=== PATIENT | male | born 1945 | race Caucasian/White ===

== ENCOUNTER 2018-12-12 06:38 | Outpatient (CLI) | payer MEDICARE ==
--- NOTE | 2018-12-12 11:25 | NM ---
NUCLEAR MEDICINE PARATHYROID SCAN: DATE: 12/12/2018 COMPARISON: None. HISTORY: Hyperparathyroidism, weight gain, fatigue. TECHNIQUE: Intravenous administration of 26.2 mCi technetium 99m labeled sestamibi performed followed by imaging over 2 hours. Imaging included SPECT imaging of the neck in the coronal, sagittal, and axial plane. FINDINGS: There is normal radiotracer distribution within the region of the thyroid gland and salivary glands o n the immediate, 1 hour, and 2 hour delayed imaging. SPECT imaging demonstrates no abnormal foci of radiotracer activity. No scintigraphic evidence of abnormal parathyroid tissue. If there is a history of abnormally elevated parathyroid hormone levels, CT examination of the neck with and without contrast using the parathyroid protocol is suggested. IMPRESSION: Unremarkable parathyroid scan as detailed above. Transcribed Date/Time: 12/12/2018 11:48 AM
== END 2018-12-12 06:39 | disposition home or self-care (01) ==
LOC: NM 06:38
PROVIDERS: ATTEND Internal Medicine Rheumatology
DX: E21.3 Hyperparathyroidism, unspecified (principal)
CPT/HCPCS: 78072; A9500

== ENCOUNTER 2019-05-05 21:42 | Inpatient (IN) | payer MEDICARE ==
--- NOTE | 2019-05-05 22:43 | RAD ---
Chest one view HISTORY: Dyspnea. FINDINGS: Cardiac silhouette is magnified and enlarged. Pulmonary vasculature upper limits of normal. Mediastinum is midline with postoperative changes and aortic calcification. Scattered areas of reticulonodular interstitial prominence. Bibasilar scarring. No evidence of pneumothorax. IMPRESSION: Atherosclerosis. Chronic scarring appearance of the lungs. No active cardiopulmonary abnormalities are otherwise demonstrated.
[2019-05-05 23:10] LABS: #Basophils 0.2 thou/uL (0.0-0.2); #Lymphocytes 0.4 thou/uL (1.20-3.40); #Monocytes 1.4 thou/uL (0.11-0.59); #Neutrophils 17.3 thou/uL (1.40-6.50); %Basophils 0.8 % (0.0-1.0); %Eosinophils 0.2 % (0.0-10.0); %Monocytes 7.2 % (0.0-10.0); %Neutrophils 89.7 % (42.0-75.0); Hemoglobin 9.2 g/dL (14.0-18.0); Mean Corpuscular HGB CONC 30.8 g/dL (32.0-36.0); Mean Corpuscular Hemoglobin 24.5 pg (27.0-31.0); Mean Corpuscular Volume 79.5 fL (78.0-98.0); Mean Platelet Volume 7.9 fL (7.4-10.4); Platelet Count 265 thou/uL (130-400); RBC Distribution Width 14.6 % (11.5-14.5); Red Blood Cell (RBC) Count 3.76 mill/uL (4.70-6.10); White Blood Cell (WBC) Count 19.3 thou/uL (4.8-10.8)
[2019-05-05] MEDS ORDERED: Acetaminophen 500 MG TAB ONE (23:16)
[2019-05-05 23:32] LABS: ALT (SGPT) 9 U/L (8-55); AST (SGOT) 19 U/L (5-34); Albumin 3.3 g/dL (3.4-4.8); Alkaline Phosphatase 71 U/L (40-110); Anion Gap 13 mmol/L (10-20); BUN (Urea Nitrogen) 32 mg/dL (8.4-25.7); Bilirubin, Total 1.1 mg/dL (0.2-1.2); CK (CPK) 119 U/L (30-200); Calc. Creatinine Clearance 0 mL/min (70-130); Carbon Dioxide 19 mmol/L (23-31); Chloride 106 mmol/L (98-107); Estimated GFR-MDRD 24; Globulin 2.8 g/dL (2.4-3.5); Glucose 121 mg/dL (83-110); Potassium 4.9 mmol/L (3.5-5.1); Protein, Total 6.1 g/dL (5.8-8.1); Sodium 133 mmol/L (136-145)
[2019-05-05] MEDS ORDERED: Furosemide 40 MG/4 ML VIAL ONE (23:47)
[2019-05-06] MEDS ORDERED: Piperacillin/Tazobactam 4.5 GM VIAL ONE (00:07)
[2019-05-06 01:00] LABS: CKMB 3.4 ng/mL (0-6.6)
[2019-05-06] MEDS ORDERED: Bisacodyl 10 MG SUPP PR PRN (01:45)
[2019-05-06] MEDS ORDERED: Loperamide HCl 2 MG CAP PO PRN (01:45)
[2019-05-06] MEDS ORDERED: Bisacodyl 5 MG TAB PO PRN (01:45)
[2019-05-06] MEDS ORDERED: HYDROcodone/Acetaminophen 5/325 mg Tablet PO PRN (01:45)
[2019-05-06] MEDS ORDERED: Morphine 2 MG/ML SYRINGE SLOW IVP PRN (01:47)
[2019-05-06] MEDS ORDERED: hydrALAZINE 20 MG/ML VIAL SLOW IVP PRN (01:47)
[2019-05-06] MEDS ORDERED: cloNIDine 0.1 MG TAB PO PRN (01:47)
[2019-05-06] MEDS ORDERED: Ondansetron PF 4 MG/2 ML Vial IVP PRN (01:47)
[2019-05-06] MEDS ORDERED: Promethazine HCl 12.5 MG in Sodium Chloride 0.9% 50 ML IVPB PRN (01:47)
--- NOTE | 2019-05-06 01:57 | PDOC.HHP ---
Hospitalist HPI - History of Present Illness Hematuria History of Present Illness: Patient is a 73 year old male with PMH myasthenia gravis, atrial fibrillation who presents to ED for hematuria. Patient was discharged from [facility] this morning, he had an ablation there yesterday for atrial fibrillation, per family everything went well with ablation by Dr Cruz, patient recieved normal dose of ASA and eliquis this AM and discharged home, he then began to have hematuria, first pink and then red urine, he also developed shortness of breath wth minimal exertion such as moving around in bed, was not urinating at all even after recieving lasix in ED, on floor bladder scan revealed 800cc urine in bladder. Ankur has been seen by urologist at other facilities several times this month for kidney stones, is not currently having flank pain. In ED, WBC elevated, creatinine increasing from 2.6 to 3.2, CXR with atherosclerosis and lung scarring. The family does not want to go to [facility] again. Dr Cruz called by ED who reportedly agreed for her to be admitted there and stated he will work with our cardiologists for any relevant issues. Hospitalist ROS - Review of Systems Constitutional: denies: fever, chills Eyes: denies: pain, vision change ENT: denies: mouth swelling, throat pain Respiratory: reports: cough, shortness of breath, SOB with excertion Cardiovascular: denies: chest pain, palpitations Gastrointestinal: denies: nausea, vomiting Genitourinary: reports: dysuria, hematuria Musculoskeletal: denies: neck pain, shoulder pain Skin: denies: rash, lesions Neurological: denies: weakness, numbness All other systems reviewed; all pertinent +/- noted in HPI/Subj Hospitalist History - Past Medical History Other Medical History: atrial fibrillation myasthenia gravis - Past Surgical History Other Surgical History: thymectomy appendectomy cholecystectomy hernia repair L knee replacement - Family History Other Family History: reviewed and noncontributory - Social History Smoking Status: Former smoker Alcohol: reports: None Drugs: reports: none - Exam General Appearance: NAD, awake alert Eye: PERRL, anicteric sclera ENT: normocephalic atraumatic, moist mucosa Neck: supple, no JVD Heart: RRR, no murmur, no gallops, no rubs Respiratory: CTAB, no wheezes, no rales, no ronchi Gastrointestinal: soft, non-tender, non-distended, normal bowel sounds Extremities: no cyanosis, no clubbing, no edema Skin: no lesions, no rashes Neurological: cranial nerve grossly intact, normal sensation to touch, no weakness, no focal deficits Musculoskeletal: normal tone, normal strength Psychiatric: normal affect, normal behavior, A&O x 3 Hospitalist Results - Labs Result Diagrams: 05/06/19 02:24 05/06/19 02:24 Lab results: WBC 19.3 thou/uL (4.8-10.8) H 05/05/19 23:02 Hgb 9.2 g/dL (14.0-18.0) L 05/05/19 23:02 Hct 29.9 % (42.0-52.0) L 05/05/19 23:02 MCV 79.5 fL (78.0-98.0) 05/05/19 23:02 Plt Count 265 thou/uL (130-400) 05/05/19 23:02 Neutrophils % 89.7 % (42.0-75.0) H 05/05/19 23:02 Sodium 133 mmol/L (136-145) L 05/05/19 23:02 Potassium 4.9 mmol/L (3.5-5.1) 05/05/19 23:02 Chloride 106 mmol/L (98-107) 05/05/19 23:02 Carbon Dioxide 19 mmol/L (23-31) L 05/05/19 23:02 BUN 32 mg/dL (8.4-25.7) H 05/05/19 23:02 Creatinine 2.62 mg/dL (0.7-1.3) H 05/05/19 23:02 Glucose 121 mg/dL (83-110) H 05/05/19 23:02 Calcium 10.0 mg/dL (7.8-10.44) 05/05/19 23:02 Total Bilirubin 1.1 mg/dL (0.2-1.2) 05/05/19 23:02 AST 19 U/L (5-34) 05/05/19 23:02 ALT 9 U/L (8-55) 05/05/19 23:02 Alkaline Phosphatase 71 U/L (40-110) 05/05/19 23:02 Creatine Kinase 119 U/L (30-200) 05/05/19 23:02 CK-MB (CK-2) 3.4 ng/mL (0-6.6) 05/05/19 23:02 Troponin I 2.000 ng/mL (< 0.028) H* 05/05/19 23:02 Serum Total Protein 6.1 g/dL (5.8-8.1) 05/05/19 23:02 Albumin 3.3 g/dL (3.4-4.8) L 05/05/19 23:02 Hospitalist H&P A/P - Plan Plan: Patient is a 73 year old male with PMH above admitted for: # hematuria - patient recieved ASA and eliquis, has hematuria and likely obstructive uropathy, hold blood thinners, rodriguez ordered and CBI ordered as well , will consult urology for presumed obstructive uropathy due to clotting # ZACHARY - presume due to obstructive uropathy, will place rodriguez and do CBI and consult urology and nephrology, repeat BMP 4pm # shortness of breath - presume acute volume overload, anticipate improvement with rodriguez placement # atrial fibrillation with ablation dischared from [place] yesterday - will consult cardiology, Dr Cruz has pledged to work with out cardiology team to address any need in the post procedure period
[2019-05-06 02:31] LABS: #Lymphocytes 0.5 thou/uL (1.20-3.40); #Monocytes 1.3 thou/uL (0.11-0.59); #Neutrophils 16.5 thou/uL (1.40-6.50); %Eosinophils 0.2 % (0.0-10.0); %Lymphocytes 2.6 % (21.0-51.0); %Monocytes 6.8 % (0.0-10.0); %Neutrophils 90.4 % (42.0-75.0); Hemoglobin 8.4 g/dL (14.0-18.0); Mean Corpuscular HGB CONC 31.5 g/dL (32.0-36.0); Mean Corpuscular Hemoglobin 24.5 pg (27.0-31.0); Mean Corpuscular Volume 77.9 fL (78.0-98.0); Mean Platelet Volume 7.7 fL (7.4-10.4); Platelet Count 260 thou/uL (130-400); RBC Distribution Width 14.6 % (11.5-14.5); Red Blood Cell (RBC) Count 3.42 mill/uL (4.70-6.10); White Blood Cell (WBC) Count 18.3 thou/uL (4.8-10.8)
[2019-05-06 03:06] LABS: Anion Gap 13 mmol/L (10-20); BUN (Urea Nitrogen) 36 mg/dL (8.4-25.7); Calc. Creatinine Clearance 0 mL/min (70-130); Calcium 10.2 mg/dL (7.8-10.44); Carbon Dioxide 19 mmol/L (23-31); Chloride 106 mmol/L (98-107); Estimated GFR-MDRD 19; Glucose 123 mg/dL (83-110); Potassium 4.8 mmol/L (3.5-5.1); Sodium 133 mmol/L (136-145)
[2019-05-06 03:16] LABS: Critical Call Chem Troponin I RESULT DECREASING; Troponin I 1.975 ng/mL (< 0.028)
[2019-05-06] MEDS: Acetaminophen 325 MG TAB PO PRN ×2 (03:24→20:08)
[2019-05-06 05:20] VITALS: BMI 43.9
[2019-05-06 05:38] LABS: Critical Call Chem Troponin I RESULT DECREASING; Troponin I 1.593 ng/mL (< 0.028)
[2019-05-06] MEDS ORDERED: Prevnar 13-Val Conj/PF 0.5 ML SYRINGE IM ONE (09:00)
--- NOTE | 2019-05-06 09:14 | CT ---
CT Abdomen Pelvis WO Con HISTORY: Obstructive uropathy. Acute renal insufficiency. Hematuria COMPARISON: None. FINDINGS: There are atelectatic changes within the lung bases. The liver, spleen and pancreas regions appear unremarkable. The gallbladder has been removed. A small hiatal hernia is noted. Right and left adrenal glands are normal. There is a right renal calculus located in the lower pole r egion measuring 11 mm range. There is marked hydronephrosis and hydroureter associated with this there is no evidence of a ureteral calculus. A Grijalva catheter is present within the bladder which is completely decompressed. There still appears to be wall thickening to the bladder. The prostate is enlarged. There is minimal dilatation to the left collecting system, again no evidence of any uretera l calculus. There is no significant periaortic or mesenteric adenopathy. CT of pelvis performed with contrast enhancement: No evidence of any significant adenopathy. Other fi ndings as noted above. There are arthritic changes of the spine. IMPRESSION: 1. Marked right-sided hydronephrosis and hydroureter, there is no obstructing calculus present. The b ladder is decompressed but the bladder wall still appears thickened. There is an approximately 11 mm lower pole right renal calculus present. 2. Enlarged prostate. 3. No renal mass is identified on this noncontrast study.
--- NOTE | 2019-05-06 09:23 | CON ---
DATE OF CONSULTATION: 05/06/2019 SERVICE: Nephrology. REQUESTING PHYSICIAN: Rene Crespo MD REASON FOR CONSULTATION: Renal failure. HISTORY OF PRESENT ILLNESS: A 73-year-old male with past medical history significant for obesity, myasthenia gravis, paroxysmal atrial fibrillation as well as obstructive sleep apnea and chronic leg swelling and nephrolithiasis, who was admitted due to acute onset of hematuria, which started few days after commencement of aspirin and Eliquis post ablation of atrial fibrillation. The patient reported worsening shortness of breath as well as difficulty urination. In the ER, the patient was found to have urinary retention. Hence, had Grijalva catheter placed and continuous bladder irrigation commenced. He was also found to have acute elevation in creatinine necessitating Nephrology consult. Of note, the patient was recently discharged from [facility] after ablation for atrial fibrillation. The patient denied knowledge of prior chronic kidney disease. PAST MEDICAL HISTORY: 1. Atrial fibrillation. 2. Obstructive sleep apnea. 3. Morbid obesity. 4. Myasthenia gravis. 5. Chronic CHF. PAST SURGICAL HISTORY: 1. Thymus removal. 2. Appendectomy. 3. Cholecystectomy. 4. Hernia repair. 5. Left knee replacement. FAMILY HISTORY: Reviewed, but noncontributory. SOCIAL HISTORY: The patient lives with family. He is a former smoker, who quit more than 10 years ago. Denied alcohol or recreational drug use. ALLERGIES: NO KNOWN DRUG ALLERGIES REPORTED. PRIOR TO HOSPITAL MEDICATIONS: 1. Eliquis 5 mg p.o. daily. 2. Aspirin 325 mg p.o. daily. 3. Azathioprine 100 mg p.o. b.i.d. 4. Colchicine 0.6 mg p.o. daily. 5. Mestinon 60 mg q.i.d. 6. Ramipril 5 mg p.o. daily. 7. Flomax 0.4 mg p.o. b.i.d. REVIEW OF SYSTEMS: This is grossly limited as the patient is on BiPAP currently. He, however, denied chest pain, abdominal pain, nausea, vomiting, fever, or cough. He admitted to chronic bilateral leg edema. PHYSICAL EXAMINATION: VITAL SIGNS: Temperature 99.2, pulse 84, respiratory rate 20, SpO2 of 96% on CPAP, blood pressure is 122/59. GENERAL: Morbidly obese male, in no obvious distress. Afebrile. Anicteric. Acyanotic. HEENT: Normocephalic, atraumatic. CPAP mask is in place. NECK: Supple with no JVD. CARDIOVASCULAR: Regular rhythm and rate with normal heart sounds 1 and 2. No obvious murmur was appreciated. RESPIRATORY: Fair air entry bilaterally with BiPAP transmitted breath sounds. No obvious rhonchi were appreciated. GI: Morbidly obese, soft, nontender, nondistended with normal bowel sounds. EXTREMITIES: Cupo-kn-fosldhll bilateral leg edema with chronic venous stasis changes noted. NEUROLOGIC: Conscious and alert. Oriented x3 with appropriate mental status. Cranial nerves 2 through 12 are grossly intact. The patient moves all extremities. UROGENITAL: Grijalva catheter is in place and continuous bladder irrigation is in process. Urine in the urine bag is clear with no obvious blood. DIAGNOSTIC DATA: CBC showed WBC count of 18.3, hemoglobin of 8.4, MCV of 77.9, platelet of 260. Of note, on presentation yesterday, WBC was 19.3 and hemoglobin was 9.2, whereas on May 02, WBC was 7.3 and hemoglobin was 10.2. BMP today showed sodium 133, potassium 4.8, chloride 106, CO2 of 19, creatinine 3.22, BUN 36, glucose 123, calcium 10.2. On presentation on May 05, creatinine was 2.66 and BUN was 32. However, on May 02, sodium was 141, potassium 4.3, chloride 110, CO2 of 23, BUN 15, creatinine 1.01, glucose 104, calcium 10.1. Liver enzymes were unremarkable with total bilirubin of 0.6, normal liver enzymes, and total protein of 6.3 with albumin of 3.5. Troponin on presentation was 2.00, which has trended down to 1.59 currently. Chest x-ray performed on presentation showed no active cardiopulmonary abnormality. EKG on presentation showed normal sinus rhythm with occasional PVCs with rate of 92. Right bundle-branch block and T-wave abnormalities on the lateral leads were noted. ASSESSMENT: 1. Acute kidney injury: The patient has history of nephrolithiasis as well as benign prostatic hypertrophy and came in with urinary retention, most likely due to bladder outlet obstruction related to clot. Differential include pyelonephritis and/or obstructive uropathy. Prerenal etiology seems unlikely as the patient has no features of volume overload or cardiac decompensation. Pigment related acute kidney injury is unlikely. Recent ablation increases risk of rhabdomyolysis. The patient also is on ramipril, increasing possibility of prerenal etiology. 2. Chronic kidney disease stage 3: Due to hemodynamic factors and age. 3. Gross hematuria: Most likely due to cystitis in a patient on anticoagulation. Suspected obstructive uropathy. 4. Nephrolithiasis with possible obstruction. 5. Chronic congestive heart failure with possible decompensation. 6. Obstructive sleep apnea. 7. Chronic bilateral leg edema: Most likely related to diastolic heart failure and venous insufficiency. 8. History of gout, on colchicine. 9. Paroxysmal atrial fibrillation, status post recent ablation. 10. Chronic anticoagulation with Eliquis. Recently commenced. 11. Morbid obesity. 12. History of myasthenia gravis, on Mestinon. PLAN: 1. We will get CK as well as urine electrolytes and urinalysis with reflex to culture. 2. We will also get CT scan of the abdomen and pelvis without contrast to assess renal anatomy and drainage system. 3. Agree with antibiotic therapy. 4. Urology consult has been requested. 5. Further treatment to follow depending on hospital course and review of other diagnostic tests. 6. Avoid nephrotoxic agents. Job ID: [id number] [facility]
[2019-05-06] MEDS: Pyridostigmine Bromide IR 60 MG TAB PO SCH ×4 (10:05→20:08)
[2019-05-06] MEDS: azaTHIOprine 50 MG TAB PO SCH ×2 (10:05→17:35)
[2019-05-06] MEDS: Tamsulosin HCl 0.4 MG CAP PO SCH ×2 (10:05→20:08)
[2019-05-06] MEDS: Senokot S 8.6-50 MG TAB PO SCH ×2 (10:06→20:08)
[2019-05-06] MEDS ORDERED: Apixaban 5 MG TAB PO SCH ×3 (11:11→21:00)
--- NOTE | 2019-05-06 11:15 | CON ---
DATE OF CONSULTATION: 05/06/2019 REASON FOR CONSULTATION: Urinary retention, gross hematuria, renal insufficiency. PRIMARY UROLOGIST: Dr. Eyad Marcelino at [facility]. HISTORY OF PRESENT ILLNESS: Mr. Bach is a pleasant 73-year-old male, who recently underwent cardiac ablation at [facility] due to paroxysmal AFib. He had been started on his aspirin and Eliquis post ablation for history of AFib. He presented to the emergency room due to gross hematuria. He also complained of shortness of breath in the emergency room, and difficulty voiding. He was provided Lasix. Grijalva catheter was placed, review of records demonstrated he had about a liter in his bladder. Continuous bladder irrigation was started by the emergency room in which he currently has a 20-[place] three-way Grijalva catheter. Currently, the CBI is running at a relatively slow rate and is bibi, pink tinged. Review of [facility] records: significantly enlarged prostate, resection of his prostate was challenging due to his body habitus, morbid obesity, and large prostate volume. He underwent staged intervention of cystolitholapaxy, subsequent TURP, and residual bladder laser lithotripsy on April 19, [address] Marcelino. Operative records reviewed demonstrating he had significant trilobar hyperplasia of the prostate. He states that he has been voiding okay, status post surgery, however, continues to have decreased urinary flow. Currently, he is resting comfortably. Family at bedside. His labs, imaging, and chart reviewed from [facility] as well in concordance with imaging and labs from [facility]. He was seen by Nephrology already, as he has acute renal insufficiency from baseline, a CT of the abdomen and pelvis stone protocol was obtained this morning, which I reviewed myself, demonstrating mild bilateral hydronephrosis, right greater than left. The dilation of his collecting system is seen to the level of the bladder consistent with urinary retention. There is no evidence of ureteral calculi. He has a stable right lower pole renal calculi, which was present on renal ultrasound at [facility]. PAST MEDICAL HISTORY: Includes AFib, COPD, morbid obesity, myasthenia gravis, and chronic CHF. PAST SURGICAL HISTORY: Status post thymectomy, appendectomy, cholecystectomy, hernia repair, left knee surgery. At [facility] last month, he underwent cysto, TURP, laser lithotripsy of bladder calculi, TURP of trilobar hyperplasia of the prostate by Dr. Marcelino. FAMILY HISTORY: Negative. SOCIAL HISTORY: Lives with family. Former smoker, quit about 10 years ago. Denies alcohol or illicit drug use. ALLERGIES: NO KNOWN DRUG ALLERGIES. HOME MEDICATIONS: Include; 1. Eliquis 5 mg one p.o. daily. 2. Aspirin 325. 3. Azathioprine. 4. Colchicine. 5. Ramipril. 6. Flomax 0.4 mg one p.o. b.i.d. REVIEW OF SYSTEMS: Ten-point review of systems as above, otherwise noncontributory. Daughter at bedside. PHYSICAL EXAMINATION: VITAL SIGNS: Stable. Heart rate is 84 to 102, saturating well on 96%, and blood pressure is stable. I's and O's; he has 850 of urine out. GENERAL: The patient is morbidly obese male, cooperative to physical exam. HEENT: Grossly unremarkable. HEART: Regular rate. LUNGS: Decreased inspiratory effort. ABDOMEN: Morbidly obese, protuberant. There is some ecchymosis in the left groin from recent cardiac ablation access with no hematoma, but ecchymosis in the left groin noted. GENITOURINARY: Uncircumcised, testes are descended. Consistent with his physical exam and CT, he has a very large prostate, his catheter is near hubbed consistent with prolonged urethral length. I did flush his catheter manually at bedside with tiny scant clots. CBI re-initiated at a low rate demonstrating bibi urine. CBI was restarted this morning by nursing staff as it was held by Nephrology and restarted due to hematuria component. EXTREMITIES: Bilateral pitting edema with venous stasis changes. I did not perform a digital rectal exam on today's consult. PSYCHIATRIC: Appears to be appropriate. Affect normal. No gross focal deficits neurologically. PERTINENT LABORATORY AND IMAGING DATA: Renal ultrasound from [facility] reviewed on March 24, 2019, with no evidence of hydronephrosis. CT of the abdomen and pelvis stone protocol this morning on May 06, 2019, demonstrates right lower pole renal calculi of 11 mm. Although, the CT was read as marked hydronephrosis. Per my review, there is mild hydronephrosis and hydroureter, right greater than left. Dilated ureter is seen to the level of the prostate, consistent with acute urinary retention resulting in bilateral hydro. There is no evidence of ureteral calculi. Per my review, CT prostate volume measures 250 to 300gms, has persistent trilobar median lobe component on sagittal images. IMPRESSION: Mr. Bach is a 73-year-old male with; 1. Morbid obesity. 2. Congestive heart failure. 3. Atrial fibrillation. 4. History of bladder stones due to chronic retention likely, with very large prostate volume, status post transurethral resection of the prostate, cystolitholapaxy last month. 5. Cardiac ablation, on Eliquis, aspirin, presented with gross hematuria, retention, and renal insufficiency and hydronephrosis as above. Anticoagulation on hold due to gross hematuria, anemia PLAN: I recommend indwelling Grijalva catheter to stay in situ with CBI. This will be monitored with continuous bladder irrigation and will be managed per . Monitor H and H and BMP. I anticipate his creatinine will improve as his bladder is decompressed. will recheck BMP tomorrow. He does have history of kidney stones. He states that he has no back pain consistent with renal colicky discomfort of concern. Continue Flomax b.i.d., Avodart initiated. will inform Dr. Marcelino on Wednesday. Job ID: [id number] [facility]
--- NOTE | 2019-05-06 11:53 | CON ---
DATE OF CONSULTATION: PRIMARY AUTOTRANSFUSIONIST: Herbie Herrera MD REASON FOR CONSULTATION: Recent atrial fibrillation ablation by Dr. Cruz, hematuria. HISTORY OF PRESENT ILLNESS: Mr. aBch is a 73-year-old gentleman, who recently had atrial fibrillation ablation at [facility]. The patient developed gross hematuria at home and was brought here to the emergency room. The patient does not have a lot a recollection. There is some confusion last night. The patient for some reason brought to this institution, although his cashier host/hostess is at [facility]. The patient does not have any history of coronary artery disease. He takes aspirin because the patient states that he was told that will be a good idea buy someone, but as far as he knows, he does not have any history of coronary artery disease. No chest pain or pressure. He also has a history of renal insufficiency. MEDICINES: At home included; 1. Aspirin. 2. Eliquis. ALLERGIES: NONE KNOWN. PHYSICAL EXAMINATION: GENERAL: On examination, his blood pressure is 126/59 and pulse 102, sinus rhythm. HEENT: Eyes; sclerae are nonicteric. Mouth; mucous membranes moist. NECK: Supple. No lymphadenopathy. LUNGS: Clear. CARDIAC: Normal S1. Normal S2. There is no murmur, rub, or gallop. ABDOMEN: Obese, nontender. No hepatosplenomegaly. EXTREMITIES: Moderate peripheral edema with some venous stasis changes. DIAGNOSTIC DATA: EKG shows sinus rhythm with a right bundle-branch block. ASSESSMENT: 1. Recent atrial fibrillation ablation. 2. Increased troponin level, probably related to atrial fibrillation ablation, the levels are decreasing. 3. Renal insufficiency with a creatinine of 3.22. 4. He has edema. PLAN: 1. Need to resume Eliquis in view of the recent AFib ablation. Otherwise, there will be substantial risk of stroke. 2. Stop aspirin. 3. He is getting bladder irrigation. 4. He has obstructive sleep apnea, on CPAP. Job ID: [id number]
[2019-05-06] MEDS ORDERED: Piperacillin/Tazobactam 3.375 GM in Sodium Chloride 0.9% 100 ML IVPB SCH (12:00)
[2019-05-06 12:05] LABS: Bacteria/HPF 4+ HPF (None Seen); Bilirubin Negative (Negative); Blood, Urine 3+ (Negative); Clarity Turbid (Clear); Glucose, Urine (Dipstick) Normal (Negative); Leukocyte 250 Leu/uL (Negative); Nitrite Negative (Negative); Protein, Urine (Dipstick) 100 mg/dL (Neg-Trace); RBC/HPF Greater than 50 HPF (0-3); Squamous Epithelial None Seen HPF (0-3); Urobilinogen Normal mg/dL (Less than 2)
[2019-05-06 12:08] LABS: Urine Culture Reflex Yes Yes
[2019-05-06 12:18] LABS: Creatinine, Urine 75.36 mg/dL (63-166)
--- NOTE | 2019-05-06 12:45 | PDOC.HOSPP ---
- Subjective Encounter Date: 05/06/19 Encounter Time: 09:00 Subjective: no sob or chest pain now had sob prior to arrival is using cpap and trying to sleep now daughter at bedside no prior h/o ckd per patient and daughter, most of his hosp are at [facility] or [facility] - Objective Vital Signs & Weight: Vital Signs (12 hours) Temp Pulse Resp BP Pulse Ox 05/06/19 08:00 97.8 F 102 H 18 126/59 L 96 05/06/19 01:45 99.2 F 84 20 122/59 L 96 Weight Admit Weight 361 lb 1.875 oz Weight 361 lb 1.875 oz I&O: 05/05/19 05/06/19 05/07/19 06:59 06:59 06:59 Intake Total 100 Output Total 850 Balance -750 Result Diagrams: 05/06/19 02:24 05/06/19 02:24 Hospitalist ROS - Medication Medications: Active Medications Generic Name Dose Route Start Last Admin Trade Name Freq PRN Reason Stop Dose Admin Acetaminophen 650 mg 05/06/19 01:45 05/06/19 03:24 Tylenol PO 650 mg Q4H PRN Administration Headache/Fever/Mild Pain (1-3) Apixaban 5 mg 05/06/19 11:30 05/06/19 11:35 Eliquis PO 05/06/19 14:00 Not Given NOW HONEY Azathioprine 100 mg 05/06/19 07:30 05/06/19 10:05 Imuran PO 100 mg BID-AC HONEY Administration Pantoprazole Sodium 40 mg 05/06/19 09:00 05/06/19 10:05 Protonix PO 40 mg DAILY HONEY Administration Pyridostigmine [place] 60 mg 05/06/19 09:00 05/06/19 10:05 Mestinon PO 60 mg QID HONEY Administration Senna/Docusate Sodium 1 tab 05/06/19 09:00 05/06/19 10:06 Senokot S PO 1 tab BID HONEY Administration Sodium Chloride 10 ml 05/06/19 09:00 05/06/19 10:06 Flush - Normal Saline IVF 10 ml Q12HR HONEY Administration Tamsulosin HCl 0.4 mg 05/06/19 09:00 05/06/19 10:05 Flomax PO 0.4 mg BID HONEY Administration - Exam General Appearance: NAD, awake alert Eye: PERRL, anicteric sclera ENT: no oropharyngeal lesions, moist mucosa Neck: supple, no JVD Heart: RRR, no murmur Respiratory: no wheezes, no rales Respiratory - other findings: distant breath sounds Gastrointestinal: soft, non-tender, normal bowel sounds Extremities: no cyanosis, 1+ LE edema Neurological: cranial nerve grossly intact, no focal deficits Psychiatric: A&O x 3 Hosp A/P (1) ZACHARY (acute kidney injury) Code(s): N17.9 - ACUTE KIDNEY FAILURE, UNSPECIFIED Status: Acute (2) CKD (chronic kidney disease) stage 3, GFR 30-59 ml/min Code(s): N18.3 - CHRONIC KIDNEY DISEASE, STAGE 3 (MODERATE) Status: Suspected (3) Hematuria Code(s): R31.9 - HEMATURIA, UNSPECIFIED Status: Acute Qualifiers: Hematuria type: gross Qualified Code(s): R31.0 - Gross hematuria (4) H/O myasthenia gravis Code(s): Z86.69 - PERSONAL HISTORY OF DIS OF THE NERVOUS SYS AND SENSE ORGANS Status: Chronic (5) HTN (hypertension) Code(s): I10 - ESSENTIAL (PRIMARY) HYPERTENSION Status: Chronic Qualifiers: Hypertension type: essential hypertension Qualified Code(s): I10 - Essential (primary) hypertension (6) Afib Code(s): I48.91 - UNSPECIFIED ATRIAL FIBRILLATION Status: Chronic Qualifiers: Atrial fibrillation type: paroxysmal Qualified Code(s): I48.0 - Paroxysmal atrial fibrillation (7) Chronic anemia Code(s): D64.9 - ANEMIA, UNSPECIFIED Status: Chronic (8) Hyponatremia Code(s): E87.1 - HYPO-OSMOLALITY AND HYPONATREMIA Status: Acute (9) Obesity Code(s): E66.9 - OBESITY, UNSPECIFIED Status: Chronic Qualifiers: Obesity classification: adult class 3 (BMI >= 40) Body mass index: BMI 40.0 -44.9 - Plan is on imuran, mestinon for M.gravmar had recent ablation by and was on eliquis, held now due to hematuria continue zosyn, flomax obtain records from either [facility] or [facility] to check for prior creatinine levels, echo results for ef/thrombus hemostable to mobilize with PT as tolerated d/w daughter and patient at bedside urine is almost clearing up, no jacky blood in rodriguez now
[2019-05-06] MEDS ORDERED: Piperacillin/Tazobactam 2.25 GM in Sodium Chloride 0.9% 100 ML IVPB SCH (14:00)
--- NOTE | 2019-05-06 15:47 | CON ---
DATE OF CONSULTATION: 05/06/2019 REASON FOR CONSULTATION: Paroxysmal atrial fibrillation. HISTORY OF PRESENT ILLNESS: Mr. Bach is a pleasant 73-year-old white male with a history of BPH with bladder outlet obstruction, persistent atrial fibrillation , myasthenia gravis, diastolic heart failure, and hematuria. He had a TURP by Dr. Eyad Marcelino, at [facility] on April 10, 2019 and April 19, 2019. After discussion with Dr. Marcelino and the patient, we jointly decided to proceed with pulmonary vein isolation, which I performed on May 04 at the [facility]. The procedure was uncomplicated other than some mild hematuria. During the procedure, he was converted to sinus rhythm. He has a right bundle branch block at baseline with AV Wenckebach of 94 beats per minute. Last night, he developed a fever with increased hematuria. His family brought him to the [facility], who was seen in the Emergency Department. WBC was 20. He was febrile. He was treated with antibiotics and a Grijalva catheter was placed after noting that he had 800 mL of residual urine in his bladder. He is now comfortable and afebrile. He has chronic anemia with a hemoglobin of 9.8 on April 11, 2019. Hemoglobin today is 8.4. Platelets are 260. His creatinine has increased to 3.2. JEFFERY on May 04, 2019, showed moderate biatrial enlargement with ejection fraction 65%, mildly calcified aortic valve with mild tricuspid regurgitation and mild mitral regurgitation. He has had no bleeding from his catheterization sites. He has no chest discomfort or dyspnea. He is lying flat without respiratory difficulty. PAST MEDICAL HISTORY: 1. Persistent atrial fibrillation as above. 2. BPH with bladder outlet obstruction and recent TURP as above. 3. Diastolic heart failure as above. SOCIAL HISTORY: He lives in [place]. His daughter and granddaughter had involved in his care and brought him to the hospital. REVIEW OF SYSTEMS: No melena, bright blood per rectum, or hematemesis. No chest discomfort or dyspnea. No unilateral weakness or numbness. No seizures. No dysphagia. PHYSICAL EXAMINATION: GENERAL: Alert and oriented x4. No apparent distress, lying flat. VITAL SIGNS: Temperature 97.8, pulse 94, respiratory rate 12, and blood pressure 126/59. HEENT: No lesions. CARDIOVASCULAR: Regular rate and rhythm. No murmurs, gallops, or rubs. LUNGS: Clear to auscultation bilaterally. ABDOMEN: Nontender and nondistended. Groin bilaterally mild ecchymoses without hematoma at his catheterization sites. EXTREMITIES: 1+ edema bilaterally. DIAGNOSTIC DATA: EKG sinus rhythm with right bundle branch block. LABORATORY DATA: WBC 18.3, hemoglobin 8.4, hematocrit 26.7, and platelets 260. Sodium 133, potassium 4.8, BUN 36, creatinine 3.2, and glucose 123. IMPRESSION AND PLAN: 1. Persistent atrial fibrillation, now in sinus rhythm after ablation. 2. Diastolic heart failure, compensated. 3. Hematuria, likely related to anticoagulation as we gave heparin during the procedure and he is chronically on Eliquis. Eliquis was restarted yesterday morning after the procedure. 4. Hematuria. 5. Bladder outlet obstruction with a recent transurethral resection of the prostate. RECOMMENDATION: 1. Hold Eliquis and aspirin today. Resume Eliquis as soon as acceptable from urologic standpoint. 2. Continue Protonix. Restart Multaq 400 mg b.i.d. 3. Agree with Urology consultation. Job ID: [id number] [facility] CENTERKira
[2019-05-06] MEDS: Dronedarone HCl 400 MG TAB PO SCH (17:35)
[2019-05-06] MEDS ORDERED: Cefepime 1 GM in Sodium Chloride 0.9% 100 ML IVPB SCH (18:15)
[2019-05-06] MEDS ORDERED: Vancomycin HCl 1 GM in Premix Bag 1 BAG IVPB SCH ×2 (18:15→19:00)
[2019-05-06 18:27] LABS: Anion Gap 12 mmol/L (10-20); BUN (Urea Nitrogen) 33 mg/dL (8.4-25.7); Calc. Creatinine Clearance 70 mL/min (70-130); Calcium 10.2 mg/dL (7.8-10.44); Carbon Dioxide 23 mmol/L (23-31); Chloride 104 mmol/L (98-107); Estimated GFR-MDRD 30; Glucose 107 mg/dL (83-110); Potassium 4.5 mmol/L (3.5-5.1); Sodium 134 mmol/L (136-145)
[2019-05-06] MEDS: Apixaban 5 MG TAB PO SCH (20:08)
[2019-05-07 04:33] LABS: #Eosinphils 0.1 thou/uL (0.0-0.7); #Lymphocytes 0.4 thou/uL (1.20-3.40); #Monocytes 0.5 thou/uL (0.11-0.59); #Neutrophils 9.9 thou/uL (1.40-6.50); %Basophils 0.3 % (0.0-1.0); %Eosinophils 0.8 % (0.0-10.0); %Lymphocytes 3.2 % (21.0-51.0); %Monocytes 4.7 % (0.0-10.0); Hemoglobin 7.9 g/dL (14.0-18.0); Mean Corpuscular HGB CONC 31.5 g/dL (32.0-36.0); Mean Corpuscular Hemoglobin 24.7 pg (27.0-31.0); Mean Corpuscular Volume 78.4 fL (78.0-98.0); Mean Platelet Volume 8.4 fL (7.4-10.4); Platelet Count 185 thou/uL (130-400); RBC Distribution Width 14.4 % (11.5-14.5); Red Blood Cell (RBC) Count 3.19 mill/uL (4.70-6.10); White Blood Cell (WBC) Count 10.9 thou/uL (4.8-10.8)
[2019-05-07 05:02] LABS: Anion Gap 10 mmol/L (10-20); BUN (Urea Nitrogen) 34 mg/dL (8.4-25.7); Calc. Creatinine Clearance 87 mL/min (70-130); Calcium 10.1 mg/dL (7.8-10.44); Carbon Dioxide 22 mmol/L (23-31); Chloride 107 mmol/L (98-107); Estimated GFR-MDRD 38; Glucose 99 mg/dL (83-110); Potassium 4.4 mmol/L (3.5-5.1); Sodium 135 mmol/L (136-145)
[2019-05-07 08:06] LABS: Iron Binding Capacity, Total 263 mcg/dL (261-462)
[2019-05-07 08:12] LABS: Iron Less than 8 ug/dL (65-175)
--- NOTE | 2019-05-07 09:13 | PRG ---
DATE OF SERVICE: 05/07/2019 SERVICE: Nephrology. SUBJECTIVE: A 73-year-old male admitted due to worsening leg swelling and gross hematuria, being followed up for acute kidney injury. Gross hematuria has subsided. The patient reports improvement in leg swelling. Continues to get continues bladder irrigation. Denied fever, nausea, and vomiting. The patient recently had a prostate resection. OBJECTIVE: VITAL SIGNS: Temperature 98.1, pulse 80, respiratory rate 16, SpO2 of 98% on 2 L nasal cannula, and blood pressure is 107/53. GENERAL: Obese male, in no obvious distress. Afebrile. Anicteric. Acyanotic. HEENT: Normocephalic and atraumatic. Oral mucosa is moist. CARDIOVASCULAR: Regular rhythm and rate with normal heart sounds one and two. Soft systolic murmur noted, maximal at the aortic area. RESPIRATORY: Fair air entry bilaterally with few transmitted breath sounds. No obvious crackle or rhonchi or use of accessory muscles appreciated. GI: Obese, soft, nontender, and nondistended with normal bowel sounds. UROGENITAL: Grijalva catheter is in place. Left groin ecchymosis noted. EXTREMITIES: Trace bilateral leg edema noted. BOTTOM LIQUOR ATTENDANT: Conscious, alert, and oriented x3 with appropriate mental status. Cranial nerves 2 through 12 are grossly intact. DIAGNOSTIC DATA: CBC showed WBC count of 10.9, hemoglobin of 7.9, and platelet of 185. BMP showed sodium 135, potassium 4.4, chloride 107, CO2 of 22, BUN 34, creatinine 1.76, glucose 99, and calcium 10.1. ASSESSMENT: 1. Acute kidney injury: This is most likely due to obstructive uropathy. Contribution from pyelonephritis cannot be ruled out. Baseline creatinine was 1.01 on May 02, 2019. It went up to a peak of above 3, but is currently down to 1.7. There seems to be two pathologies here; one unilateral hydronephrosis from possible stone and bladder outlet obstruction from clot. Bladder outlet obstruction has been relieved with improvement in renal function. 2. Chronic kidney disease, stage 3. 3. Nephrolithiasis with presumed obstruction on the right side and possible pyelonephritis. 4. Complicated urinary tract infection. 5. Bladder outlet obstruction status post decompression with Grijalva catheter. 6. Bilateral leg edema: Due to chronic kidney disease with fluid retention. Markedly improved with post obstruction diuresis. 7. Post obstruction diuresis: We will monitor closely. The patient put out about 7000 L of urine with about 3 L negative in the last 24 hours. This; however, is questionable given the patient receives continues bladder irrigation. 8. Obstructive sleep apnea, on continuous positive airway pressure. 9. Paroxysmal atrial fibrillation, status post ablation. 10. Chronic anticoagulation with Eliquis and aspirin: Both are held at this time due to hematuria. 11. Morbid obesity. 12. History of gout, on colchicine. PLAN: 1. We will continue to avoid nephrotoxic agent including KRISTIAN inhibitors and diuretics. 2. We will monitor intake and output very closely and will possibly start IV fluid therapy, if the patient's post obstruction diuresis is causing dehydration. 3. Urology is following. May need to repeat ultrasound of the kidneys to ascertain resolution of right unilateral hydronephrosis. 4. Anemia in the CKD. We will get iron chemistry to rule in or rule out iron deficiency anemia and will address as needed. 5. Other treatment as per other specialties. Job ID: [id number]
[2019-05-07] MEDS: Dutasteride 0.5 MG CAP PO SCH (10:00)
[2019-05-07] MEDS: Pyridostigmine Bromide IR 60 MG TAB PO SCH ×4 (10:01→19:45)
[2019-05-07] MEDS: azaTHIOprine 50 MG TAB PO SCH ×2 (10:01→17:38)
[2019-05-07] MEDS: Dronedarone HCl 400 MG TAB PO SCH ×2 (10:01→17:38)
[2019-05-07] MEDS: Tamsulosin HCl 0.4 MG CAP PO SCH ×2 (10:01→19:44)
[2019-05-07] MEDS: Apixaban 5 MG TAB PO SCH ×2 (10:02→19:44)
[2019-05-07] MEDS: Senokot S 8.6-50 MG TAB PO SCH ×2 (10:02→19:45)
--- NOTE | 2019-05-07 11:00 | PDOC.HOSPP ---
- Subjective Encounter Date: 05/07/19 Encounter Time: 10:00 Subjective: more awake and alert this am is getting echo done feels better no bleeding in his rodriguez - Objective Vital Signs & Weight: Vital Signs (12 hours) Temp Pulse Resp BP Pulse Ox 05/07/19 07:50 98.1 F 80 16 107/53 L 98 05/07/19 03:00 98.4 F 83 20 134/60 96 05/06/19 23:00 100.1 F H 82 20 113/55 L 98 Weight Admit Weight 361 lb 1.875 oz Weight 365 lb I&O: 05/06/19 05/07/19 05/08/19 06:59 06:59 06:59 Intake Total 100 3400 500 Output Total 850 8594 Balance -750 -5177 500 Result Diagrams: 05/07/19 04:17 05/07/19 04:17 Hospitalist ROS - Medication Medications: Active Medications Generic Name Dose Route Start Last Admin Trade Name Freq PRN Reason Stop Dose Admin Acetaminophen 650 mg 05/06/19 01:45 05/06/19 20:08 Tylenol PO 650 mg Q4H PRN Administration Headache/Fever/Mild Pain (1-3) Apixaban 5 mg 05/06/19 21:00 05/07/19 10:02 Eliquis PO 5 mg BID HONEY Administration Azathioprine 100 mg 05/06/19 07:30 05/07/19 10:01 Imuran PO 100 mg BID-AC HONEY Administration Dronedarone 400 mg 05/06/19 17:00 05/07/19 10:01 Multaq PO 400 mg BID-WM HONEY Administration Dutasteride 0.5 mg 05/07/19 09:00 05/07/19 10:00 Avodart PO 0.5 mg DAILY HONEY Administration Cefepime HCl 1 gm/ Sodium 100 mls @ 200 mls/hr 05/06/19 18:15 05/06/19 19:23 Chloride IVPB 100 mls Q24HR HONEY Administration Vancomycin HCl 1 gm/ Device 200 mls @ 200 mls/hr 05/06/19 19:00 05/06/19 20: 08 IVPB 200 mls Q24HR HONEY Administration Pantoprazole Sodium 40 mg 05/06/19 09:00 05/07/19 10:02 Protonix PO 40 mg DAILY HONEY Administration Pyridostigmine [place] 60 mg 05/06/19 09:00 05/07/19 10:01 Mestinon PO 60 mg QID HONEY Administration Senna/Docusate Sodium 1 tab 05/06/19 09:00 05/07/19 10:02 Senokot S PO Not Given BID HONEY Sodium Chloride 10 ml 05/06/19 09:00 05/07/19 10:03 Flush - Normal Saline IVF 10 ml Q12HR HONEY Administration Tamsulosin HCl 0.4 mg 05/06/19 09:00 05/07/19 10:01 Flomax PO 0.4 mg BID HONEY Administration - Exam General Appearance: awake alert Eye: PERRL, anicteric sclera ENT: no oropharyngeal lesions, moist mucosa Neck: supple, no JVD Heart: no murmur, no gallops Respiratory: no wheezes, no rales Gastrointestinal: soft, non-tender, non-distended, normal bowel sounds Extremities: no cyanosis, no edema Neurological: cranial nerve grossly intact, no focal deficits Psychiatric: normal affect, A&O x 3 Hosp A/P (1) Bacteremia due to Enterococcus Code(s): R78.81 - BACTEREMIA; B95.2 - ENTEROCOCCUS THE CAUSE OF DISEASES CLASSIFIED ELSEWHERE Status: Acute (2) Sepsis Code(s): A41.9 - SEPSIS, UNSPECIFIED ORGANISM Status: Acute (3) ZACHARY (acute kidney injury) Code(s): N17.9 - ACUTE KIDNEY FAILURE, UNSPECIFIED Status: Acute (4) CKD (chronic kidney disease) stage 3, GFR 30-59 ml/min Code(s): N18.3 - CHRONIC KIDNEY DISEASE, STAGE 3 (MODERATE) Status: Suspected (5) Hematuria Code(s): R31.9 - HEMATURIA, UNSPECIFIED Status: Resolved Qualifiers: Hematuria type: gross Qualified Code(s): R31.0 - Gross hematuria (6) H/O myasthenia gravis Code(s): Z86.69 - PERSONAL HISTORY OF DIS OF THE NERVOUS SYS AND SENSE ORGANS Status: Chronic (7) HTN (hypertension) Code(s): I10 - ESSENTIAL (PRIMARY) HYPERTENSION Status: Chronic Qualifiers: Hypertension type: essential hypertension Qualified Code(s): I10 - Essential (primary) hypertension (8) Afib Code(s): I48.91 - UNSPECIFIED ATRIAL FIBRILLATION Status: Chronic Qualifiers: Atrial fibrillation type: paroxysmal Qualified Code(s): I48.0 - Paroxysmal atrial fibrillation (9) Chronic anemia Code(s): D64.9 - ANEMIA, UNSPECIFIED Status: Chronic (10) Hyponatremia Code(s): E87.1 - HYPO-OSMOLALITY AND HYPONATREMIA Status: Acute (11) Obesity Code(s): E66.9 - OBESITY, UNSPECIFIED Status: Chronic Qualifiers: Obesity classification: adult class 3 (BMI >= 40) Body mass index: BMI 40.0 -44.9 - Plan is on imuran, mestinon for M.gravis had recent ablation by and was on eliquis, held for 1 day then restarted by cardio, Hb around 7g continue flomax, on vanc and cefepime, ID consultation due to e.faecalis 2/2 bacteremia obtain records from either [facility] or [facility] to check for prior creatinine levels, echo results for ef/thrombus, will repeat echo in view of bacteremia hemostable to mobilize with PT as tolerated d/w patient at bedside Hematuria resolved
--- NOTE | 2019-05-07 11:30 | PRG ---
DATE OF SERVICE: 05/07/2019 SUBJECTIVE: The patient is sitting up in bed, no new complaints. The patient on CBI. OBJECTIVE: VITAL SIGNS: Temperature 98, pulse 80, respiratory rate 16, oxygen saturation 98 on 2 L, and blood pressure 107/53. I's and O's, the patient on CBI. Urine output at a low rate CBI is bibi, pink tinged. ABDOMEN: Morbidly obese, protuberant. Grijalva catheter adequately secured. PERTINENT LABORATORY DATA: White count 10, hemoglobin did decrease to 7.9. His admitting hemoglobin was 10.2. Eliquis was started yesterday per Cardiology's discretion due to risk of stroke. White count decreased from 19 to 10. Renal insufficiency, improving with indwelling Grijalva catheter as he presented with acute urinary retention of about 1 L of PVR. Creatinine today is 1.7. Blood culture, Enterococcus, vanc sensitive. Urine culture is pending thus far. IMPRESSION AND PLAN: Mr. Bach is a 73-year-old male with history of morbid obesity, massively enlarged prostate, trilobar hyperplasia with multiple bladder stones, underwent staged cystolitholapaxy, transurethral resection of the prostate by Dr. Marcelino last month. He presents with gross hematuria, urinary retention, renal insufficiency secondary to bilateral hydronephrosis resulting from acute urinary retention. Continue indwelling Grijalva catheter and continuous bladder irrigation. He continues to have hematuria component, it is not obvious as he has CBI. His hemoglobin has decreased and this needs to be monitored closely due to cardiac comorbidities. Urine culture and blood culture reviewed, agree with cefepime and vancomycin. ID consult has been ordered. CT does demonstrate residual fragmented stone debris and a nonobstructing right lower pole renal calculi, not of concern at this time. Continue to monitor his renal function on CBI. will inform Dr. Marcelino of the patient's clinical course in am Job ID: [id number] [facility]OSPITALKira
--- NOTE | 2019-05-07 11:34 | PRG ---
DATE OF SERVICE: 05/07/2019 SUBJECTIVE: In better spirits today, sitting up. No chest discomfort, dyspnea, dysphagia, syncope, or palpitations. PHYSICAL EXAMINATION: GENERAL: Alert and oriented x4. No apparent distress. VITAL SIGNS: Temperature 98.1, blood pressure 107/53, pulse 80, respiratory rate 12. HEENT: No lesions. Sclerae clear. SKIN: No lesions. CARDIOVASCULAR: Regular rate and rhythm. No murmurs, gallops, or rubs. LUNGS: Clear to auscultation bilaterally. Normal respiratory effort. EXTREMITIES: Trace edema bilaterally. LABORATORY DATA: WBC 10.9, hemoglobin 7.9, and platelets 185. Sodium 135, potassium 4.4, and creatinine 1.7. IMPRESSION AND PLAN: 1. Persistent atrial fibrillation, status post ablation on May 04 without complications. He is maintaining sinus rhythm. 2. Hematuria, improved. 3. Chronic diastolic heart failure, compensated. 4. Acute renal failure, improved with resolution of his bladder outlet obstruction. RECOMMENDATIONS: 1. Continue to hold/discontinue aspirin. 2. Agree with restarting Eliquis today for stroke prevention. 3. Continue Multaq 400 mg b.i.d. 4. Continue Protonix. Job ID: [id number]
--- NOTE | 2019-05-07 16:04 | CON ---
DATE OF CONSULTATION: 05/07/2019 REASON FOR CONSULTATION: Bacteremia. HISTORY OF PRESENT ILLNESS: A 73-year-old, who has a history of myasthenia gravis, managed with Imuran with good results; cardiomyopathy with chronic atrial fibrillation, recent ablation done at [facility]; obesity; and benign prostatic hypertrophy, managed by Dr. Marcelino at [facility], who after discharge developed hematuria and was brought in. On arrival, he was found to be in urinary retention with 800 mL of urine in bladder. He also had white cell count elevation, although there had been no report of fever in the home setting. There was elevation in the creatinine, and the initial impression was obstructive uropathy, atrial fibrillation, volume overload, and worsening renal function from obstructive uropathy. The initial imaging study was read as marked hydronephrosis, but Urology consultation, Dr. Dominguez felt that the degree of hydronephrosis was not high, but mild, and so, no intervention was recommended other than the maintenance of Grijalva catheterization and irrigation to prevent obstruction of the catheter by blood. Since admission, there has been improvement in the white cell counts and in creatinine. Urine culture is still pending, but the 2 sets of blood culture samples are with Enterococcus faecalis. An echocardiogram did not show any obvious abnormalities other than abnormal septal motion, but the technical quality of the study was limited. Currently, Mr. Bach is sitting by the bedside. He is oriented. Does not appear in distress. Little bit tachypneic. Denies headaches. No visual symptoms, sore throat, odynophagia, or dysphagia. No back pain. No chest pain. No abdominal pain. Chronic joint symptoms are unchanged. No neurological symptoms. PAST MEDICAL HISTORY: Atrial fibrillation; myasthenia gravis; BPH; recent cardiac ablation, on Eliquis; and urinary obstruction due to BPH with hematuria. PAST SURGICAL HISTORY: He also on the surgical history has had thymectomy, appendectomy, cholecystectomy, hernia repair, and left knee replacement by Dr. Gill. FAMILY HISTORY: Noncontributory. SOCIAL HISTORY: Former smoker. Retired. Lives with daughter. CURRENT MEDICATIONS: 1. P.r.n. medications. 2. Eliquis. 3. Imuran. 4. Dulcolax. 5. Cefepime. 6. Catapres. 7. Multaq. 8. Avodart. 9. Imodium. 10. Morphine. 11. Protonix. 12. Promethazine. 13. Mestinon. 14. Tamsulosin. 15. Vancomycin. PHYSICAL EXAMINATION: VITAL SIGNS: T-max 100.1, blood pressure 111/55, pulse 81, respirations 18, O2 saturation 94% on room air. SKIN: Peripheral IV access. No other areas of skin breakdown. Grijalva catheter in place with irrigation. No lymphadenopathy. The patient has evidence of stasis dermatitis in lower extremities with venous insufficiency changes. HEENT: Ocular movements are conjugate. Somewhat pale conjunctivae. Oral cavity with artificial dentures. Moist mucosa. No lesions. NECK: Supple. No jugular vein distention. LUNGS: With faint basilar crackles. HEART: S1 and S2. Irregular rate. No S3 or S4. ABDOMEN: Soft with moderate distention, but no tenderness. No ascites. No bladder distention. No organomegaly. EXTREMITIES: Osteoarthrosis in right knee. The left TKR appears normal without inflammatory changes. Pulses are 1+ in dorsalis pedis. There is 2+ edema in lower extremities. NEUROLOGIC: Nonfocal including cognitive function. LABORATORY DATA: White cell count is down from 19 to 10.9, hemoglobin down to 7.9, MCV 78, platelets 185, 91% neutrophils. Creatinine is down from 3.22 to 1.76. Baseline was 1.01 on May 02, 2019. Liver profile was normal. Albumin 3.3. Troponin 1.593. Urinalysis with 7 to 10 wbc's, protein 100. Microbiology, noted above. ASSESSMENT: 1. Cardiomyopathy with atrial fibrillation, recent ablation. 2. Benign prostatic hypertrophy with urinary obstruction and hematuria. Mild hydronephrosis per Urology interpretation, and there is 1 single stone in the renal pelvis. 3. Enterococcus faecalis bacteremia. DISCUSSION: The differential diagnosis includes urinary tract infection with bacteremia due to obstruction of the urinary outflow tract due to BPH. The stone in the renal pelvis may be colonized. The patient will have to continue with Grijalva catheterization until outpatient evaluation by Dr. Marcelino, and consideration will have to be given to procedure to relieve this area of obstruction. A voiding trial may be attempted after hematuria is cleared. He may need a cystoscopy. The stone identified on CT scan is located in the lower pole region of the right renal pelvis measuring 1.1 mm. No evidence of ureteral calculus was noted. Possibility of endocarditis is considered, but it appears to be less likely. We will review the data at [facility] to see if cultures were obtained over there. Cultures here are still pending. They may still retrieve the same organism. If that is the case, then we will continue treatment with ampicillin and transition to oral amoxicillin or ampicillin for a total of 2 weeks. It does not look like he is going to require lithotripsy. He may need a less invasive procedure such as a lift procedure for the prostate to manage obstruction. If there is recrudescence of bacteremia down the road, then he will need a JEFFERY. Job ID: [id number]
[2019-05-07] MEDS: Ampicillin 2 GM in Sodium Chloride 0.9% 100 ML IVPB SCH (23:20)
[2019-05-08] MEDS: diphenhydrAMINE 50 MG CAP PO PRN ×2 (01:14→22:01)
[2019-05-08] MEDS: Ampicillin 2 GM in Sodium Chloride 0.9% 100 ML IVPB SCH ×3 (05:10→21:42)
[2019-05-08 05:19] LABS: Anion Gap 10 mmol/L (10-20); BUN (Urea Nitrogen) 27 mg/dL (8.4-25.7); Calc. Creatinine Clearance 135 mL/min (70-130); Carbon Dioxide 24 mmol/L (23-31); Chloride 105 mmol/L (98-107); Estimated GFR-MDRD 63; Glucose 99 mg/dL (83-110); Potassium 3.9 mmol/L (3.5-5.1); Sodium 135 mmol/L (136-145)
[2019-05-08 06:08] LABS: Band 22 % (5-11); Elliptocytes SLIGHT = 2-5 cells (100X) (0-1/hpf); Eosinophils 3 % (0-10); Hemoglobin 7.5 g/dL (14.0-18.0); Lymphocytes 10 % (21-51); MDiff Complete? YES; Mean Corpuscular HGB CONC 31.1 g/dL (32.0-36.0); Mean Corpuscular Hemoglobin 24.2 pg (27.0-31.0); Mean Corpuscular Volume 77.8 fL (78.0-98.0); Mean Platelet Volume 8.3 fL (7.4-10.4); Monocytes 3 % (0-10); Neutrophil 61 % (42-75); Platelet Count 174 thou/uL (130-400); Platelet Morphology Comment Appears Adequate; Red Blood Cell (RBC) Count 3.11 mill/uL (4.70-6.10); White Blood Cell (WBC) Count 7.2 thou/uL (4.8-10.8)
[2019-05-08] MEDS: azaTHIOprine 50 MG TAB PO SCH ×2 (09:24→16:36)
[2019-05-08] MEDS: Dronedarone HCl 400 MG TAB PO SCH ×2 (09:25→16:36)
[2019-05-08] MEDS: Apixaban 5 MG TAB PO SCH ×2 (09:25→21:40)
[2019-05-08] MEDS: Dutasteride 0.5 MG CAP PO SCH (09:25)
[2019-05-08] MEDS: Iron, Sodium Ferric Gluconate 250 MG in Sodium Chloride 0.9% 100 ML IVPB SCH ×2 (09:25→21:41)
[2019-05-08] MEDS: Pyridostigmine Bromide IR 60 MG TAB PO SCH ×4 (09:26→21:45)
[2019-05-08] MEDS: Tamsulosin HCl 0.4 MG CAP PO SCH ×2 (09:26→21:40)
--- NOTE | 2019-05-08 11:56 | PQF ---
CLINICAL DOCUMENTATION IMPROVEMENT CLARIFICATION FORM: ICD-10 Updated PLEASE DO AN ADDENDUM TO THE PROGRESS NOTE WITH ANY DOCUMENTATION UPDATES OR ADDITIONS AND CARRY THROUGH TO DC SUMMARY. THANK YOU. DATE: 05/08/19 ATTN: DR. OSHEA Please exercise your independent, professional judgment in responding to the clarification form. Clinical indicators are provided on the bottom of this form for your review Diagnosis: "SEPSIS" Present on Admission (POA): [x ] Yes [ ] No [ ] Unable to determine For continuity of documentation, please document condition throughout progress notes and discharge summary. Thank You. CLINICAL INDICATORS - SIGNS / SYMPTOMS / LABS/ RESULTS AND LOCATION IN MR ER NOTE 05/06: PULSE 107 RR 32 TEMP 101.1 WBC 05/05: 19.3 BANDS 05/08: 22 PROGRESS NOTE 05/07: "SEPSIS" RISKS: BACTEREMIA (CONSULT NOTE 05/07) URINARY RETENTION WITH HYDRONEPHROSIS (CONSULT NOTE 05/07) TREATMENT: IV ZOSYN (ER) IV VANCOMYCIN (ER) IV AMPICILLAN (05/07-PRESENT) URINE AND BLOOD CULTURES (05/05 & 05/06) SERIAL LABS ID CONSULT (This form is maintained as a part of the permanent medical record) 2014 [employer], [employer] All Rights Reserved YE [email or web address] Office: [phone] [facility]
[2019-05-08] MEDS ORDERED: Furosemide 40 MG/4 ML VIAL SLOW IVP SCH (13:30)
--- NOTE | 2019-05-08 13:48 | PRG ---
DATE OF SERVICE: 05/08/2019 SUBJECTIVE: Mr. Castano is doing better. He is sitting up in the chair. No chest pain or pressure. The urine is now clear. OBJECTIVE: VITAL SIGNS: His blood pressure is 113/57, pulse 70. LUNGS: Clear. CARDIAC: Normal S1, normal S2. ABDOMEN: Soft, nontender. EXTREMITIES: Moderate edema. LABORATORY DATA: Creatinine is actually improved to 1.14, potassium 3.9. ASSESSMENT: 1. Hematuria, improved. 2. Recent atrial fibrillation ablation. 3. Diastolic heart failure. PLAN: 1. Give one dose of Lasix. 2. Potassium. 3. He is tolerating the apixaban without aspirin. Hopefully home soon if doing well. Job ID: [id number]
--- NOTE | 2019-05-08 14:33 | PDOC.HOSPP ---
- Subjective Encounter Date: 05/08/19 Encounter Time: 11:40 Subjective: is sitting in chair, feels better no chest pain or palp no blood in rodriguez - Objective Vital Signs & Weight: Vital Signs (12 hours) Temp Pulse Pulse Resp BP BP BP 05/08/19 13:35 80 137/63 05/08/19 11:35 98.3 F 69 20 113/57 L 05/08/19 08:00 98.6 F 75 18 127/61 05/08/19 07:52 05/08/19 04:00 98.9 F 70 16 113/55 L Pulse Ox 05/08/19 13:35 05/08/19 11:35 97 05/08/19 08:00 95 05/08/19 07:52 95 05/08/19 04:00 94 L Weight Admit Weight 361 lb 1.875 oz Weight 350 lb I&O: 05/07/19 05/08/19 05/09/19 06:59 06:59 06:59 Intake Total 3400 1970 Output Total 8542 2800 Balance -5175 -830 Result Diagrams: 05/08/19 04:33 05/08/19 04:33 Hospitalist ROS - Medication Medications: Active Medications Generic Name Dose Route Start Last Admin Trade Name Freq PRN Reason Stop Dose Admin Acetaminophen 650 mg 05/06/19 01:45 05/06/19 20:08 Tylenol PO 650 mg Q4H PRN Administration Headache/Fever/Mild Pain (1-3) Apixaban 5 mg 05/06/19 21:00 05/08/19 09:25 Eliquis PO 5 mg BID HONEY Administration Azathioprine 100 mg 05/06/19 07:30 05/08/19 09:24 Imuran PO 100 mg BID-AC HONEY Administration Diphenhydramine HCl 50 mg 05/08/19 00:41 05/08/19 01:14 Benadryl PO 50 mg Q6H PRN Administration Itching & Insomnia Dronedarone 400 mg 05/06/19 17:00 05/08/19 09:25 Multaq PO 400 mg BID-WM HONEY Administration Dutasteride 0.5 mg 05/07/19 09:00 05/08/19 09:25 Avodart PO 0.5 mg DAILY HONEY Administration Furosemide 40 mg 05/08/19 13:30 05/08/19 14:21 Lasix SLOW IVP 05/08/19 15:30 40 mg NOW HONEY Administration Ampicillin Sodium 2 gm/ Sodium 100 mls @ 200 mls/hr 05/07/19 22:00 05/08/19 14:22 Chloride IVPB 100 mls Q8HR HONEY Administration Ferric Sodium Gluconate 120 mls @ 60 mls/hr 05/08/19 09:00 05/08/19 09:25 Complex 250 mg/ Sodium IVPB 05/08/19 21:01 120 mls Chloride Q12HR HONEY Administration Pantoprazole Sodium 40 mg 05/06/19 09:00 05/08/19 09:26 Protonix PO 40 mg DAILY HONEY Administration Pyridostigmine [place] 60 mg 05/06/19 09:00 05/08/19 14:21 Mestinon PO 60 mg QID HONEY Administration Sodium Chloride 10 ml 05/06/19 09:00 05/08/19 09:27 Flush - Normal Saline IVF 10 ml Q12HR HONEY Administration Tamsulosin HCl 0.4 mg 05/06/19 09:00 05/08/19 09:26 Flomax PO 0.4 mg BID HONEY Administration - Exam General Appearance: awake alert Eye: PERRL, anicteric sclera ENT: no oropharyngeal lesions, moist mucosa Neck: supple, no JVD Heart: RRR, no murmur Respiratory: no wheezes, no rales Gastrointestinal: soft, non-tender, non-distended, normal bowel sounds Extremities: no cyanosis, 1+ LE edema Neurological: cranial nerve grossly intact, no focal deficits Psychiatric: normal affect, A&O x 3 Hosp A/P (1) Bacteremia due to Enterococcus Code(s): R78.81 - BACTEREMIA; B95.2 - ENTEROCOCCUS THE CAUSE OF DISEASES CLASSIFIED ELSEWHERE Status: Acute (2) Sepsis Code(s): A41.9 - SEPSIS, UNSPECIFIED ORGANISM Status: Acute (3) ZACHARY (acute kidney injury) Code(s): N17.9 - ACUTE KIDNEY FAILURE, UNSPECIFIED Status: Resolved (4) CKD (chronic kidney disease) stage 3, GFR 30-59 ml/min Code(s): N18.3 - CHRONIC KIDNEY DISEASE, STAGE 3 (MODERATE) Status: Suspected (5) Hematuria Code(s): R31.9 - HEMATURIA, UNSPECIFIED Status: Resolved Qualifiers: Hematuria type: gross Qualified Code(s): R31.0 - Gross hematuria (6) H/O myasthenia gravis Code(s): Z86.69 - PERSONAL HISTORY OF DIS OF THE NERVOUS SYS AND SENSE ORGANS Status: Chronic (7) HTN (hypertension) Code(s): I10 - ESSENTIAL (PRIMARY) HYPERTENSION Status: Chronic Qualifiers: Hypertension type: essential hypertension Qualified Code(s): I10 - Essential (primary) hypertension (8) Afib Code(s): I48.91 - UNSPECIFIED ATRIAL FIBRILLATION Status: Chronic Qualifiers: Atrial fibrillation type: paroxysmal Qualified Code(s): I48.0 - Paroxysmal atrial fibrillation (9) Chronic anemia Code(s): D64.9 - ANEMIA, UNSPECIFIED Status: Chronic (10) Hyponatremia Code(s): E87.1 - HYPO-OSMOLALITY AND HYPONATREMIA Status: Resolved (11) Obesity Code(s): E66.9 - OBESITY, UNSPECIFIED Status: Chronic Qualifiers: Obesity classification: adult class 3 (BMI >= 40) Body mass index: BMI 40.0 -44.9 (12) Acute blood loss anemia Code(s): D62 - ACUTE POSTHEMORRHAGIC ANEMIA Status: Acute - Plan is on imuran, mestinon for M.gravis had recent ablation by and was on eliquis, held for 1 day then restarted by cardio, Hb around 7g continue flomax, on ampicillin due to e.faecalis 2/2 bacteremia repeat echo shows normal ef, no obvious thrombus/veg in view of bacteremia hemostable to mobilize with PT as tolerated d/w patient at bedside Hematuria resolved, creatinine at baseline september dc bladder irrigation if ok with urology CT showed right hydro with renal lower pole calculus but none in ureter, has enlarged prostate has indwelling rodriguez per urology adv, await 's adv dc plan in am on oral amox if cleared by specialists
[2019-05-08] MEDS ORDERED: Potassium Chloride 20 MEQ TAB PO SCH (17:00)
--- NOTE | 2019-05-08 20:12 | PRG ---
DATE OF SERVICE: 05/08/2019 SUBJECTIVE: The patient feels better. He is improving with his strength. His appetite is returning. He does have low back pain. OBJECTIVE: VITAL SIGNS: T-max 98.6, blood pressure 119/59, room air saturation 96%, pulse 63 and regular, and respiratory rate 20. ABDOMEN: Soft and nontender. Grijalva catheter, hand irrigated. No clots obtained. The catheter; however, was not draining well and over a liter was aspirated from the catheter. Continuous bladder irrigation going slowly. LABORATORY DATA: Hemoglobin 7.5 and hematocrit 24.2 (yesterday's values 7.9/25.0). MICROBIOLOGY: Blood and urine cultures positive for enterococcus of two species. IMPRESSION AND PLAN: 1. Mr. Bach has a positive blood and urine cultures for Enterococcus. There appears to be two species. One is sensitive to ampicillin, gentamicin, imipenem, penicillin, piperacillin, streptomycin, vancomycin, and unable to find other results. He will need antibiotic therapy for at least two weeks. He is hemodynamically stable at this time without any overt signs of sepsis. We will defer to Dr. Arias's judgment on outpatient antibiotic therapy. 2. Urinary retention. Grijalva catheter is draining well. He did not have any retention prior to developing his septic episode. The current plan is to discharge him with Grijalva catheter in place. If the urine remains clear for couple of days, we will plan an outpatient voiding trial while he is still on antibiotic therapy. 3. Anemia. I have encouraged him to accept blood transfusion if offered. Job ID: [id number]
--- NOTE | 2019-05-08 20:42 | PRG ---
DATE OF SERVICE: 05/08/2019 SERVICE: Nephrology. SUBJECTIVE: This is a 73-year-old male with known history of BPH, status post recent surgery, who was admitted due to gross hematuria. Nephrology is following the patient for acute on chronic renal failure. The patient reports feeling better. He is still on continuous bladder irrigation. Denied nausea, vomiting or abdominal pain. Leg swelling has improved. OBJECTIVE: VITAL SIGNS: Temperature 98.6, pulse 75, respiratory rate 18, SpO2 of 95% on room air, and blood pressure 127/61. GENERAL: Obese male, in no obvious distress. Afebrile. Anicteric. Acyanotic. HEENT: Normocephalic and atraumatic. Oral mucosa is moist. CARDIOVASCULAR: Regular rhythm and rate with normal heart sounds one and two. RESPIRATORY: Fair air entry bilaterally with no obvious crackle or rhonchi or use of accessory muscles. GI: Obese, soft, nontender, nondistended with normal bowel sounds. UROGENITAL: Grijalva catheter is in place with continuous bladder irrigation ongoing. EXTREMITIES: Mild bilateral leg edema noted. No obvious erythema appreciated. HYDRAULIC BLOCKER: Conscious, alert, and oriented x3 with appropriate mental status. DIAGNOSTIC DATA: CBC showed WBC count of 7.2, hemoglobin of , MCV of 77.8, and platelets of 174. BMP showed sodium of 135, potassium of 3.9, chloride of 105, CO2 of 24, BUN of 27, creatinine of 1.14, glucose of 99, and calcium of 10.0. Iron chemistry showed serum iron less than 8, TIBC 263, and ferritin 282. ASSESSMENT: 1. Acute kidney injury: Most likely due to obstructive uropathy. Creatinine is down to 1.1 from peak of 3.22. Baseline creatinine is 1.03. 2. Anemia in chronic kidney disease. 3. Iron-deficiency anemia. 4. Volume overload with chronic bilateral leg edema. 5. Paroxysmal atrial fibrillation, status post recent ablation. 6. Bladder outlet obstruction. 7. Right hydronephrosis. PLAN: 1. We will get repeat ultrasound to confirm resolution of right unilateral hydronephrosis. 2. We will provide IV iron therapy given iron deficiency. 3. We will also monitor renal function. 4. The patient is still getting continuous bladder irrigation. Other treatment as per Urology and Cardiology. Job ID: [id number]
[2019-05-09 05:06] LABS: #Eosinphils 0.4 thou/uL (0.0-0.7); #Lymphocytes 0.8 thou/uL (1.20-3.40); #Monocytes 0.8 thou/uL (0.11-0.59); #Neutrophils 4.7 thou/uL (1.40-6.50); %Basophils 0.4 % (0.0-1.0); %Eosinophils 5.6 % (0.0-10.0); %Lymphocytes 11.9 % (21.0-51.0); %Monocytes 11.7 % (0.0-10.0); %Neutrophils 70.3 % (42.0-75.0); Mean Corpuscular HGB CONC 31.6 g/dL (32.0-36.0); Mean Corpuscular Hemoglobin 24.9 pg (27.0-31.0); Mean Corpuscular Volume 78.6 fL (78.0-98.0); Mean Platelet Volume 8.6 fL (7.4-10.4); Platelet Count 184 thou/uL (130-400); RBC Distribution Width 13.9 % (11.5-14.5); White Blood Cell (WBC) Count 6.6 thou/uL (4.8-10.8)
[2019-05-09] MEDS: Ampicillin 2 GM in Sodium Chloride 0.9% 100 ML IVPB SCH ×2 (05:08→14:30)
[2019-05-09 05:23] LABS: Anion Gap 9 mmol/L (10-20); BUN (Urea Nitrogen) 19 mg/dL (8.4-25.7); Calc. Creatinine Clearance 147 mL/min (70-130); Calcium 10.2 mg/dL (7.8-10.44); Carbon Dioxide 26 mmol/L (23-31); Chloride 105 mmol/L (98-107); Estimated GFR-MDRD 75; Glucose 100 mg/dL (83-110); Potassium 3.7 mmol/L (3.5-5.1); Sodium 136 mmol/L (136-145)
[2019-05-09] MEDS: Dutasteride 0.5 MG CAP PO SCH (08:00)
[2019-05-09] MEDS: azaTHIOprine 50 MG TAB PO SCH ×2 (08:00→17:38)
[2019-05-09] MEDS: Tamsulosin HCl 0.4 MG CAP PO SCH (08:00)
[2019-05-09] MEDS: Dronedarone HCl 400 MG TAB PO SCH ×2 (08:00→17:38)
[2019-05-09] MEDS: Pyridostigmine Bromide IR 60 MG TAB PO SCH ×2 (08:00→14:30)
[2019-05-09] MEDS: Apixaban 5 MG TAB PO SCH (08:01)
--- NOTE | 2019-05-09 08:23 | PRG ---
DATE OF SERVICE: 05/09/2019 SUBJECTIVE: Sitting up in a chair without complaints. No chest discomfort, dyspnea, syncope, or falls. He feels better today. OBJECTIVE: GENERAL: Alert and oriented x4. In no apparent distress. Well groomed. VITAL SIGNS: Temperature 97.7, pulse 69, respiratory rate 12, blood pressure 131/62. HEENT: No lesions. Sclerae clear. SKIN: No lesions. CARDIOVASCULAR: Irregularly irregular rhythm. No murmurs, gallops, or rubs. LUNGS: Clear to auscultation bilaterally. Normal respiratory effort. EXTREMITIES: 1+ edema bilaterally, which is improved. LABORATORY DATA: WBC 6.6, hemoglobin 8.0, hematocrit 25.2, and platelets 184. Sodium 136, potassium 3.7, BUN 19, creatinine 0.9, glucose 100. Telemetry; paroxysmal atrial fibrillation, 7-beat episode of nonsustained ventricular tachycardia. IMPRESSION AND PLAN: 1. Paroxysmal atrial fibrillation. He now has paroxysmal atrial fibrillation, whereas he has persistent atrial fibrillation prior to his procedure. We will continue Eliquis at 5 mg b.i.d. and Multaq 400 mg b.i.d. 2. Right bundle-branch block. He had EP study. He had Wenckebach at 94 beats per minute. I have informed he will likely need pacemaker so that we may give him antiarrhythmic therapy in the future. We will await resolution of his infection. Plan this is an outpatient. 3. Nonsustained ventricular tachycardia. Normal left ventricular systolic function. No history of syncope. Continue Multaq 400 mg b.i.d. Consider implantable loop recorder in the future. 4. Disposition. Okay to discharge from an electrophysiology standpoint. We will see him back at [facility] in 1 week after discharge. We will arrange his followup. He will follow up with NEEL Be, nurse practitioner. Job ID: [id number]
[2019-05-09] MEDS ORDERED: Torsemide 20 MG TAB PO SCH (11:30)
[2019-05-09] MEDS ORDERED: Spironolactone 25 MG TAB PO SCH (11:30)
--- NOTE | 2019-05-09 15:16 | PRG ---
DATE OF SERVICE: 05/09/2019 SERVICE: Nephrology. SUBJECTIVE: A 73-year-old male admitted due to worsening leg swelling and hematuria. The patient is being followed up for acute renal failure and bilateral leg edema. Clinically improved. Gross hematuria has subsided. The patient, however, is still on continuous bladder irrigation as per Urology. No new problem. Denied fever, nausea, vomiting, or shortness of breath. OBJECTIVE: VITAL SIGNS: Temperature 97.7, pulse 78, respiratory rate 18, SpO2 of 97 on room air, blood pressure is 116/59. GENERAL: Obese male, in no obvious distress. Afebrile. Anicteric. Acyanotic. HEENT: Normocephalic and atraumatic. Oral mucosa is moist. CARDIOVASCULAR: Regular rhythm and rate with normal heart sounds one and two. RESPIRATORY: Fair air entry bilaterally with no crackle or rhonchi or use of accessory muscles. Air entry however is decreased at both bases posteriorly. GI: Morbidly obese, soft, nontender, nondistended with normal bowel sounds. UROGENITAL: Grijalva catheter is in place, draining urine. EXTREMITIES: Moderate bilateral leg edema noted with no erythema. GEOLOGIC TECHNICIAN: Conscious and alert, oriented x3 with appropriate mental status. Cranial nerves 2 through 12 are grossly intact. DIAGNOSTIC DATA: CBC showed WBC count of 6.6, hemoglobin of 8.0, MCV of 78.6, and platelets of 184. BMP showed sodium 136, potassium 3.7, chloride 105, CO2 of 26, BUN 19, creatinine 0.98, glucose 100, calcium 10.2. ASSESSMENT: 1. Acute kidney injury: Due to obstructive uropathy related to bladder outlet obstruction. Obstruction has been relieved and renal function has improved significantly, in fact back to baseline. 2. Volume overload: The patient has bilateral leg edema as well as markedly enlarged abdomen. 3. Anemia in chronic kidney disease. 4. Chronic kidney disease, stage 3. 5. Iron deficiency anemia. 6. Nephrolithiasis without obstruction. 7. Obesity hypoventilation and obstructive sleep apnea. 8. Obstructive sleep apnea on CPAP. PLAN: We will start the patient on diuretic therapy with Lasix with torsemide 20 mg daily. We will also start the patient on spironolactone given morbid obesity and presumed hyperaldosteronism state. We will recheck renal function in the morning. Other treatment as per Urology and other specialties. Job ID: [id number]
[2019-05-09 16:00] VITALS: BP 110/58; TEMP 97.5
--- NOTE | 2019-05-10 05:39 | PQF ---
LUIS CARLOS LUNDBERG JR, OBI, CHIZOBA C [id number] [facility]-261 [id number] CLINICAL DOCUMENTATION CLARIFICATION FORM: POST DISCHARGE Addendum to original discharge summary date: ____ Late entry note date: __ This should be directed to the primary attending who did the discharge summary. ZACHARY: Due to obstructive uropathy. Just like in my note DATE: 05/10/19 ATTN: Ruben Crocker Obi Please exercise your independent, professional judgment in responding to the clarification form. Clinical indicators are provided on the bottom of this form for your review Please check appropriate box(s): [ ] Acute Renal Failure (ARF) / Acute Kidney Injury (ZACHARY) [ ] Acute Tubular Necrosis (ATN) [ ] Acute Cortical Necrosis [ ] Acute Medullary Necrosis [ ] Other Etiology or underlying conditions related to the diagnosis of ARF/ ZACHARY: [ ] Acute Interstitial Nephritis (AIN) [ ] Other: [ ] Acute on Chronic Renal Failure please specify Stage of CKD (see below) [ ] CKD without ARF/ZACHARY please specify Stage of CKD [ ] ESRD [ x ] Other diagnosis AKI due to obstructive uropathy [ ] Unable to determine In addition, please specify: Present on Admission (POA): [ x ] Yes [ ] No [ ] Unable to determine National Kidney Foundation Guidelines for CKD Staging Stage I Kidney damage with normal or increased GFRGFR > 90 Stage IIKidney damage with mildly decreased GFRGFR 60-89 Stage III Kidney damage with moderately decreased GFRGFR 30-59 Stage IVKidney damage with severely decreased GFRGFR 16-29 Stage VKidney failureGFR<15 ESRDEnd Stage Renal DiseaseOn dialysis Acute Renal Failure/Acute Kidney Failure defined as: Increases in SCr by (>) 0.3 mg/dl within 48 hours OR- Increases in SCr by (>) 1.5 times baseline, known or presumed to have occurred within the prior 7 days OR- Urine volume < 0.5 ml/kg/hour for 6 hours (KDIGO supplement 2012 for RIFLE/YIFAN criteria) For continuity of documentation, please document condition throughout progress notes and discharge summary. Thank You. CLINICAL INDICATORS - SIGNS / SYMPTOMS / LABS Laboratory Chemistry 05/05 - BUN 32, Creatinine 2.62 Hospiralist H&P p1 Dr Crespo discharge home, he began to have hematuria Hospiralist H&P p1 Dr Crespo he develop SOB with minimal exertion such as moving around in bed, was not urinating Hospiralist H&P p1 Dr Crespo On bladder scan revealed 800cc urine in bladder Hospiralist H&P p1 Dr Crespo Pt had been seen by urologist at other facilities several times this month for kidney stone Hospiralist H&P p1 Dr Crespo creatinine increasing from 2.6 to 3.2 RISK FACTORS Hospiralist H&P p1 - Hyponatremia Hospiralist H&P p4 Hematuria Hospiralist H&P p4 ZACHARY presume from obstructive uropathy TREATMENTS: MAR 05/05 IV Lasix Hospiralist H&P p4 will place rodriguez Hospiralist H&P p4 repeat BMP Nephrology consult 05/06 Ruben Baig (This form is maintained as a part of the permanent medical record) 2014 [employer] All Rights Reserved Peri [not provided] MTDD
--- NOTE | 2019-05-10 07:28 | DIS ---
DATE OF ADMISSION: 05/06/2019 DATE OF DISCHARGE: 05/09/2019 DISCHARGE DISPOSITION: Home with Home Health. PRIMARY DISCHARGE DIAGNOSES: Hematuria, resolved; Enterococcus bacteremia, sepsis, acute kidney injury, all resolving; chronic kidney disease, stage 3; history of myasthenia gravis; hypertension; history of chronic atrial fibrillation with recent ablation; chronic anemia; hyponatremia on arrival, resolved; obesity; acute blood loss anemia, stable. PROCEDURES DONE DURING HOSPITALIZATION: CT of the abdomen and pelvis done showed marked right-sided hydronephrosis and hydroureter. No obstructing calculus was seen. There was approximately 11 mm lower pole right renal calculus present. Enlarged prostate. No renal mass was identified. Chest x-ray showed no active cardiopulmonary abnormality. Echo with 2D Doppler showed ejection fraction 50% to 55%, abnormal septal motion likely due to bundle branch block, left atrium was severely dilated. Blood cultures x2 grew Enterococcus faecalis, sensitive to ampicillin. Urine culture grew Enterococcus faecalis and Enterococcus faecium, both sensitive to ampicillin. Had a white count of 19 on the day of admission, discharge number of 6.6. Hemoglobin and hematocrit were 8 and 25, platelet count 184. Discharge BUN and creatinine of 19 and 0.9. Admitting BUN and creatinine were 32 and 2.6. Troponin-I was 2.0, CK-MB 3.4, albumin 3.3. INPATIENT CONSULT: 1. Dr. Camargo for Cardiology. 2. Dr. Cruz for Electrophysiology. 3. Dr. Dominguez/Dr. Marcelino for Urology. 4. Dr. Baig for Nephrology. DISCHARGE MEDICATIONS: 1. Ampicillin 500 mg p.o. three times daily for 10 days. 2. Flomax 0.4 mg twice daily. 3. Spironolactone 50 mg p.o. q.a.m. 4. Torsemide 20 mg daily. 5. Avodart 0.5 mg p.o. daily. 6. Multaq 400 mg p.o. twice daily. 7. Eliquis 5 mg p.o. twice daily. 8. Mestinon 60 mg four times daily. 9. Colchicine 0.6 mg daily. 10. Azathioprine 100 mg twice daily. ALLERGIES: NO KNOWN DRUG ALLERGIES. DISCHARGE PLAN: The patient to follow up with Dr. Marcelino in 1 week, Dr. Arias in 1 week, Dr. Marco Cruz in 1 week, and the patient to find a primary care physician and follow up in a week. BRIEF COURSE DURING HOSPITALIZATION: The patient initially got admitted on the with complaints of bleeding per urethra. The patient had ablation done for atrial fibrillation a day prior at [facility]. He was on Eliquis and aspirin for the same. In view of this, the patient was admitted to telemetry. He has had elevated troponin, likely due to ablative procedure done. He was not symptomatic with chest pain. He has had consultations with Dr. Baig for Nephrology for acute kidney injury and Dr. Camargo for Cardiology. The patient had consultation with Dr. Dominguez, who was on-call for Urology for Dr. Marcelino. He has had gentle IV hydration along with IV antibiotics placed initially. His blood cultures 2 out of 2 grew Enterococcus faecalis. He has had the same organism in his urine culture as well. The patient had a Grijalva catheter placed and had continuous bladder irrigation done, which has resolved his hematuria. He was transitioned to IV ampicillin and on discharge, he needs to continue p.o. ampicillin 3 times a day for another 10 days. The patient has been advised to get the blood work done on next Wednesday and the results of which will be faxed to Dr. Arias. Home Health with PT and nursing will be requested. He is hemodynamically stable and has ambulated more than 300 feet on the floor. He is eating well and has been cleared for discharge by various specialists. He has indwelling Grijalva catheter and needs to follow up with Dr. Marcelino in a week. The patient also has right-sided hydro with a stone, for which he will have close followup with Dr. Marcelino. The patient has had recurrence of his atrial fibrillation, likely paroxysmal atrial fibrillation and was placed on Multaq and he needs to continue Eliquis as before. He is also optimized on cardiac medications including spironolactone and torsemide. Mr. Bach has responded well to above measures. He needs to check blood pressure and pulse twice daily and record for a period of 10 days to follow up with his primary care physician, whom he needs to find as his previous primary care physician, Dr. Shi retired per the patient. Please note, I have seen and examined the patient on the day of discharge. Job ID: [id number] [facility]
[2019-05-10] MEDS ORDERED: Spironolactone 25 MG TAB PO SCH (08:00)
[2019-05-10] MEDS ORDERED: Torsemide 20 MG TAB PO SCH (09:00)
--- NOTE | 2019-05-10 20:02 | PQF ---
LUIS CARLOS LUNDBERG JR, VINAYA KUMAR MD [id number] [facility] [id number] CLINICAL DOCUMENTATION CLARIFICATION FORM: POST DISCHARGE Addendum to original discharge summary date: ____ Late entry note date: __ DATE: 05/10/19 ATTN: Dipti Workman Please exercise your independent, professional judgment in responding to the clarification form. Clinical indicators are provided on the bottom of this form for your review In your clinical opinion based on clinical findingd below, can you please further clarify etiology of Obstructive Uropathy if due to: Please check appropriate box(s): [x ] BPH [ ] Postoperative complication of TURP [ ] Pyelonephrosis [ ] Other diagnosis [ ] Unable to determine In addition, please specify: Present on Admission (POA): [ x ] Yes [ ] No [ ] Unable to determine For continuity of documentation, please document condition throughout progress notes and discharge summary. Thank You. Laboratory Chemistry 05/05 - BUN 32, Creatinine 2.62 ED note p5 05/06 Acute cystitis with hematuria Hospitalist H&P p1 Dr Crespo discharge home, he began to have hematuria Hospitalist H&P p1 Dr Crespo he develop SOB with minimal exertion such as moving around in bed, was not urinating Hospitalist H&P p1 Dr Crespo On bladder scan revealed 800cc urine in bladder Hospitalist H&P p1 Dr Crespo Pt had been seen by urologist at other facilities several times this month for kidney stone Hospitalist H&P p1 Dr Crespo creatinine increasing from 2.6 to 3.2 Consult p3 05/06 Dr Baig The patient has history of Nephrolithiasis as well as BPH and came in with urinary retention, most likely due to bladder outlet obstruction related to clot. Consult p3 05/06 Dr Baig Nephrolithiasis with possible obstruction Consult p1 05/06 Dr Mas He had TURP on April 10 and 2018 [employer] Hospitalist H&P p1 - Hyponatremia Hospitalist H&P p4 Hematuria Hospitalist H&P p4 ZACHARY presume from obstructive uropathy Consult p1 05/06 - BPH TREATMENTS: AUG 09 IV Lasix Hospitalist H&P p4 will place rodriguez Hospitalist H&P p4 CBI Hospitalist H&P p4 repeat BMP Nephrology consult 05/06 Ruben Baig (This form is maintained as a part of the permanent medical record) 2014 [employer]. All Rights Reserved [email or web address] [not provided] MTDD
--- NOTE | 2019-05-10 20:12 | PQF ---
LUIS CARLOS LUNDBERG JR, VINAYA KUMAR MD [id number] [facility] [id number] CLINICAL DOCUMENTATION CLARIFICATION FORM: POST DISCHARGE Addendum to original discharge summary date: ____ Late entry note date: __ DATE: 05/10/19 ATTN: Iván Workman Please exercise your independent, professional judgment in responding to the clarification form. Clinical indicators are provided on the bottom of this form for your review Please check appropriate box(s): ACUITY of Diastolic CHF: [ ] Acute [ ] Acute on Chronic [ x ] Chronic [x ] Other diagnosis had zachary with volume overload [ ] Unable to determine In addition, please specify: Present on Admission (POA): [ ] Yes [ ] No [ ] Unable to determine For continuity of documentation, please document condition throughout progress notes and discharge summary. Thank You. 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 All Rights Reserved [email or web address] [not provided] MTDD
== END 2019-05-09 18:50 | disposition home health service (06) | DRG 725 ==
LOC: ERS 21:42 → 2NO 05-06 02:14
PROVIDERS: ADMIT Internal Medicine; ATTEND Internal Medicine
PROC: 5A09357 Assistance with Respiratory Ventilation, Less than 24 Consecutive Hours, Continuous Positive Airway Pressure (ICD-10-PCS; principal; 2019-05-06)
DX: N40.1 Benign prostatic hyperplasia with lower urinary tract symptoms (principal); A41.81 Sepsis due to Enterococcus; N17.9 Acute kidney failure, unspecified; Z68.41 Body mass index [BMI] 40.0-44.9, adult; I48.19 Other persistent atrial fibrillation; N13.8 Other obstructive and reflux uropathy; I50.32 Chronic diastolic (congestive) heart failure; I13.0 Hypertensive heart and chronic kidney disease with heart failure and stage 1 through stage 4 chronic kidney disease, or unspecified chronic kidney disease; E87.1 Hypo-osmolality and hyponatremia; I42.9 Cardiomyopathy, unspecified; D62 Acute posthemorrhagic anemia; I47.2 Ventricular tachycardia; E66.2 Morbid (severe) obesity with alveolar hypoventilation; N13.6 Pyonephrosis; Z96.642 Presence of left artificial hip joint; R31.0 Gross hematuria; N18.3 Chronic kidney disease, stage 3 (moderate); M10.9 Gout, unspecified; D63.1 Anemia in chronic kidney disease; I48.0 Paroxysmal atrial fibrillation; G70.00 Myasthenia gravis without (acute) exacerbation; D50.9 Iron deficiency anemia, unspecified; I45.10 Unspecified right bundle-branch block; Z90.49 Acquired absence of other specified parts of digestive tract; Z87.891 Personal history of nicotine dependence; Z79.899 Other long term (current) drug therapy; Z79.82 Long term (current) use of aspirin; Z79.01 Long term (current) use of anticoagulants
CPT/HCPCS: 36415; 71045; 74176; 76770; 80048; 80053; 81001; 82550; 82553; 82570; 82728; 83540; 83550; 84156; 84300; 84484; 84540; 85025; 87040; 87077; 87086; 87149; 87186; 93005; 93306; 96365; 96375; J0290; J0692; J1940; J2543; J2916; J3370; J3490; J7500; Q0163